=== PATIENT | female | born 2000 | race Caucasian/White ===

== ENCOUNTER → 2019-04-02 | Outpatient (CLI) | payer BC, OTHER ==
--- NOTE | 2019-04-02 15:31 | RADIOLOGY REPORT (SQ) ---
EXAM DESCRIPTION: MRI CERVICAL SPINE WITHOUT COMPLETED DATE/TIME: 04/02/2019 3:04 pm REASON FOR STUDY: (M54.2)CERVICALGIA M54.2 CERVICALGIA COMPARISON: None. TECHNIQUE: Sagittal and Axial imaging includes T1, T2, STIR and gradient echo sequences. LIMITATIONS: None. FINDINGS: ALIGNMENT: Normal. VERTEBRAE: Intact. BONE MARROW: Normal. No marrow replacement or reactive changes. DISCS: Normal. No significant abnormal signal or loss of height. HARDWARE: None in the spine. CORD AND BASE OF BRAIN: Normal in size and signal intensity. SOFT TISSUES: No soft tissue masses. C1-C2: No significant spinal stenosis. C2-C3: No significant spinal stenosis or exit foraminal stenosis. C3-C4: No significant spinal stenosis or exit foraminal stenosis. C4-C5: No significant spinal stenosis or exit foraminal stenosis. C5-C6: No significant spinal stenosis or exit foraminal stenosis. C6-C7: No significant spinal stenosis or exit foraminal stenosis. C7-T1: No significant spinal stenosis or exit foraminal stenosis. UPPER THORACIC: Incompletely imaged. No significant spinal stenosis or exit foraminal stenosis. OTHER: No other significant finding. IMPRESSION: NORMAL MRI CERVICAL SPINE. TECHNICAL DOCUMENTATION: JOB ID: [id number] [employer]- All Rights Reserved Reading location - IP/workstation name: [email or web address]
== END ==
LOC: RAD 14:11
PROVIDERS: ATTEND Physician Assistant Medical
DX: M54.2 Cervicalgia (principal)
CPT/HCPCS: 72141

== ENCOUNTER 2019-04-12 05:52 | Day surgery (SDC) | payer BC, OTHER ==
[2019-04-03 09:45] LABS: HEMATOCRIT 37.4 % (36.0-47.0); HEMOGLOBIN 12.9 g/dL (12.0-15.5); MEAN CORPUSCULAR HGB CONC 34.6 g/dL (32.0-36.0); MEAN CORPUSCULAR VOLUME 90 fl (80-97); PLATELET COUNT 271 10^3/uL (150-450); RED BLOOD COUNT 4.17 10^6/uL (3.72-5.28); RED CELL DISTRIBUTION WIDTH 12.1 % (11.5-14.0); WHITE BLOOD COUNT 5.1 10^3/uL (4.0-10.5)
[2019-04-03 09:55] LABS: APPEARANCE,URINE CLOUDY; BILIRUBIN,URINE NEGATIVE (NEGATIVE); GLUCOSE, URINE NEGATIVE (NEGATIVE); KETONES,URINE NEGATIVE (NEGATIVE); LEUKOCYTE ESTERASE,URINE MODERATE (NEGATIVE); NITRITE,URINE NEGATIVE (NEGATIVE); PROTEIN,URINE 30 mg/dL (NEGATIVE); URINE SPECIFIC GRAVITY 1.027
[2019-04-03 09:56] LABS: COLOR,URINE YELLOW
[2019-04-03 10:08] LABS: ALKALINE PHOSPHATASE 53 U/L (38-126); ANION GAP 9 (5-19); ASPARTATE AMINO TRANSFERASE 24 U/L (14-36); BILIRUBIN,DIRECT 0.1 mg/dL (0.0-0.4); BILIRUBIN,TOTAL 0.4 mg/dL (0.2-1.3); BLOOD UREA NITROGEN 10 mg/dL (7-20); CALCIUM 9.3 mg/dL (8.4-10.2); CARBON DIOXIDE 26 mmol/L (22-30); CHLORIDE 103 mmol/L (98-107); GLUCOSE 139 mg/dL (75-110); POTASSIUM 4.4 mmol/L (3.6-5.0); TOTAL PROTEIN 6.9 g/dL (6.3-8.2)
[~2019-04-12 05:52] MED LIST: CEFAZOLIN SODIUM 1 GM in DEXTROSE 5%-WATER 50 ML IV PRN; LACTATED RINGERS 1000 ML IV PRN; LIDOCAINE 0.5% INJ-PF (5 MG/ML) 50 ML SDV SUBCUT PRN
[2019-04-12] MEDS ORDERED: DEXAMETHASONE SOD PHOSPHATE INJ 4 MG/1 ML VIAL ONE (06:36)
[2019-04-12] MEDS ORDERED: FENTANYL CITRATE INJ/PF 250 MCG/5 ML AMPULE ONE (06:36)
[2019-04-12] MEDS ORDERED: MIDAZOLAM 2 MG/2 ML INJ ONE (06:36)
[2019-04-12] MEDS ORDERED: ONDANSETRON HCL INJ/PF 4 MG/2 ML SDV ONE (06:37)
[2019-04-12] MEDS ORDERED: PROPOFOL INJ 200 MG/20 ML VIAL IV ONE (06:37)
[2019-04-12] MEDS ORDERED: FENTANYL CITRATE INJ/PF 100 MCG/2 ML AMPUL IV PRN ×3 (07:34)
[2019-04-12] MEDS ORDERED: DIPHENHYDRAMINE HCL 50 MG/ML VIAL IV PRN (07:34)
[2019-04-12] MEDS ORDERED: MEPERIDINE HCL/PF INJ 25 MG/1 ML DISP.SYRIN IV PRN (07:34)
[2019-04-12] MEDS ORDERED: MORPHINE SULFATE 10 MG/ML INJ IV PRN (07:34)
[2019-04-12] MEDS ORDERED: PROMETHAZINE HCL INJ 25 MG/1 ML VIAL IV PRN ×2 (07:34→09:40)
[2019-04-12] MEDS ORDERED: BUPIVACAINE HCL 0.25 % INJ/PF (2.5 MG/1 ML) 30 ML VIAL ONE (07:52)
[2019-04-12] MEDS: KETOROLAC TROMETHAMINE INJ/PF 30 MG/1 ML SDV ONE ×2 (09:15→09:26)
[2019-04-12] MEDS ORDERED: OXYCODONE-ACETAMINOPHEN 5-325 MG TABLET PO PRN ×2 (09:38→09:39)
[2019-04-12] MEDS ORDERED: OXYCODONE-ACETAMINOPHEN 5-325 MG TABLET ONE (10:20)
[2019-04-12 12:40] VITALS: BP 122/77
[2019-04-12] MEDS ORDERED: GLYCOPYRROLATE 1 MG/5 ML VIAL ONE (14:10)
[2019-04-12] MEDS ORDERED: SUCCINYLCHOLINE CHLORIDE INJ 200 MG/10 ML VIAL ONE (14:10)
[2019-04-12] MEDS ORDERED: NEOSTIGMINE METHYLSULFATE 10 MG/10 ML VIAL ONE (14:10)
[2019-04-12] MEDS ORDERED: ROCURONIUM BROMIDE INJ 50 MG/5 ML VIAL IV ONE (14:10)
--- NOTE | 2019-04-13 18:18 | Operative Report ---
Operative Report DATE OF SURGERY: 04/12/19 PREOPERATIVE DIAGNOSIS: Pelvic pain POSTOPERATIVE DIAGNOSIS: Pelvic varicosities OPERATION: D&C Laparoscopy SURGEON: OTILIO TOVAR CHAPLAIN RESIDENT: none ANESTHESIA: GA TISSUE REMOVED OR ALTERED: Endometrium COMPLICATIONS: none ESTIMATED BLOOD LOSS: 25 cc INTRAOPERATIVE FINDINGS: Pelvic varicosities otherwise normal female anatomy PROCEDURE: Patient was brought into the operating room and placed on the table in a supine position. She was inducted under general anesthesia. The patient was then repositioned in a dorsolithotomy position. Patient was prepped and draped in a sterile fashion. A pelvic exam was performed under anesthesia. A bivalve vaginal speculum was inserted and opened up. The anterior lip of the cervix was grasped with a single-tooth tenaculum. Cervix was then gently dilated. The uterus was sounded to 7 cm. Using a small sharp curette the endometrial cavity was curetted. A tenaculum probe was then placed on the cervix. Single-tooth tenaculum was removed. Attension was turned toward the abdominal wall. A varies needle was inserted through the umbilicus until the abdominal cavity was entered. A drop of saline was placed on the varies needle. The abdomen was then picked up. The drop of saline easily egressed into the peritoneal cavity. The varies needle was connected to a CO2 insufflation machine. Insufflation began with low flow and an opening pressure of 5 cm of water. We then switched to high flow. Insufflation pressures remained at 5 cm. We created a pneumoperitoneum with approximately 2 L of CO2 reaching an insufflation pressure of 15 cm of water. The varies needle was then removed and flow was discontinued. A small incision was made infraumbilically. Through this incision a trocar and sleeve were inserted. The trocar was removed and through the sleeve the laparoscope was inserted. A small incision was then made suprapubically. Under direct visualization a second trocar and sleeve were inserted suprapubically into the peritoneal cavity and the trocar was removed. The contents of the pelvis and abdominal cavities were then visualized and video recorded. Findings consisted of pelvic varicosities otherwise negative. This terminated the laparoscopy part of the procedure. The suprapubic sleeve was removed. There was no evidence of active bleeding. The laparoscope was removed. The remaining CO2 was then allowed to escape through the subumbilical sleeve. Defects in the fascia were repaired with #0 Vicryl. The skin edges in the subumbilical incision were approximated using a subcuticular 4-0 Prolene. The skin edges in the suprapubic incision were approximated with interrupted 4-0 Prolene. The tenaculum probe was then removed from the uterus. A bivalve speculum was inserted in the vagina and opened up. The cervix did not appear to be bleeding. This terminated the procedure. Anesthesia was then discontinued. Patient was placed back in a supine position and transferred to recovery room in satisfactory condition with an estimated blood loss of 25 cc.
== END 2019-04-12 11:20 | disposition home or self-care (01) ==
LOC: OROUT 05:52
PROVIDERS: ATTEND Obstetrics & Gynecology
DX: N94.6 Dysmenorrhea, unspecified (principal); I86.2 Pelvic varices; R10.2 Pelvic and perineal pain
CPT/HCPCS: 36415; 85027; 81025; 80053; 81001; 88305 ×2; 58558; 49320; J2250; J0690; J3490 ×2; J1100; J3010; J1885; J2710; J0330; J2405; J7060; J2704; 840

== ENCOUNTER → 2019-04-14 | Outpatient (CLI) | payer BC, OTHER ==
[2019-04-14 13:26] LABS: ABSOLUTE LYMPHOCYTES (AUTO) 2.2 10^3/uL (0.5-4.7); ABSOLUTE MONOCYTES (AUTO) 0.4 10^3/uL (0.1-1.4); BASOPHILS % (AUTO) 0.5 % (0-2); EOSINOPHILS % (AUTO) 0.3 % (0-6); HEMATOCRIT 36.3 % (36.0-47.0); HEMOGLOBIN 12.9 g/dL (12.0-15.5); LYMPHOCYTES % (AUTO) 38.7 % (13-45); MEAN CORPUSCULAR HEMOGLOBIN 31.5 pg (27.0-33.4); MEAN CORPUSCULAR HGB CONC 35.5 g/dL (32.0-36.0); MEAN CORPUSCULAR VOLUME 89 fl (80-97); MONOCYTES % (AUTO) 7.1 % (3-13); PLATELET COUNT 278 10^3/uL (150-450); RED BLOOD COUNT 4.08 10^6/uL (3.72-5.28); SEGMENTED NEUTROPHILS % (AUTO) 53.4 % (42-78); TOTAL CELLS COUNTED % (AUTO) 100 %; WHITE BLOOD COUNT 5.6 10^3/uL (4.0-10.5)
[2019-04-14 13:44] LABS: ALKALINE PHOSPHATASE 51 U/L (38-126); ANION GAP 7 (5-19); ASPARTATE AMINO TRANSFERASE 51 U/L (14-36); BILIRUBIN,DIRECT 0.2 mg/dL (0.0-0.4); BILIRUBIN,TOTAL 0.4 mg/dL (0.2-1.3); BLOOD UREA NITROGEN 8 mg/dL (7-20); CALCIUM 9.5 mg/dL (8.4-10.2); CARBON DIOXIDE 29 mmol/L (22-30); CHLORIDE 104 mmol/L (98-107); GLUCOSE 82 mg/dL (75-110); POTASSIUM 4.6 mmol/L (3.6-5.0); TOTAL PROTEIN 6.9 g/dL (6.3-8.2)
== END ==
LOC: OD 12:44
PROVIDERS: ATTEND Obstetrics & Gynecology
DX: T81.89XA Other complications of procedures, not elsewhere classified, initial encounter (principal); R11.2 Nausea with vomiting, unspecified; D64.9 Anemia, unspecified
CPT/HCPCS: 36415; 80053; 85025